=== PATIENT | male | born 1935 | race Caucasian/White ===

== ENCOUNTER 2021-10-30 12:46 | Observation (INO) ==
[2021-10-30] MEDS ORDERED: Isovue-370 500 ML BOTTLE IVP ONE (13:10)
[2021-10-30 13:28] LABS: Basophils % 0.4 %; Hemoglobin 13.9 g/dL (12.9-16.9)
[2021-10-30 13:30] LABS: Immature Granulocytes % 0.2 % (0-4); Immature Platelets 4.8 % (1.1-6.1); Lymphocytes # 0.7 K/mcL (0.6-4.6); Lymphocytes % 13.4 %; Mean Corpuscular HGB Conc 31.6 g/dL (31.6-35.5); Mean Corpuscular Hemoglobin 28.6 pg (28.0-33.3); Mean Corpuscular Volume 90.5 fL (83.0-100.0); Mean Platelet Volume 10.7 fL (9.4-12.4); Monocytes # 0.9 K/mcL (0.0-1.3); Monocytes % 15.6 %; Neutrophils # 3.9 K/mcL (1.6-8.9); Platelet Count 109 K/mcL (140-400); Red Blood Count 4.86 M/mcL (4.19-5.50); Red Cell Distribution Width 13.8 % (11.5-14.5); Segmented Neutrophils % 70.4 %; White Blood Count 5.5 K/mcL (4.3-11.1)
[2021-10-30 13:35] LABS: INR 1.1; Prothrombin Time 11.7 Seconds (9.4-12.1)
[2021-10-30 13:51] LABS: Albumin/Globulin Ratio 1.3 (1.1-2.2); Bilirubin,Direct 0.1 mg/dL (0.0-0.2); Bilirubin,Indirect 0.4 mg/dL (0.0-1.0); Bilirubin,Total 0.5 mg/dL (0.3-1.0); Potassium 4.8 mEq/L (3.5-5.1)
[2021-10-30 13:58] LABS: Troponin I 0.03 ng/mL (< 0.04)
[2021-10-30 14:18] LABS: Influenza A PCR Negative (Negative); Influenza B PCR Negative (Negative); Resp. Syncytial Virus PCR Negative (Negative)
[2021-10-30 14:59] LABS: SARS-CoV-2 by PCR (In House) Positive (Negative)
[2021-10-30] MEDS ORDERED: Naloxone 0.4 MG/ML INJ IVP PRN (15:51)
[2021-10-30] MEDS ORDERED: Mag Hydrox/Al Hydrox/Simeth 30 ML UDC PO PRN (15:51)
[2021-10-30] MEDS ORDERED: Ondansetron ODT 4 MG TAB.RAPDIS SL PRN (15:51)
[2021-10-30] MEDS ORDERED: 0.9 % Sodium Chloride 500 ML IVC ONE (15:55)
[2021-10-30] MEDS ORDERED: 0.9 % Sodium Chloride 1,000 ML IVC SCH (16:00)
[2021-10-30 17:29] LABS: Bacteria,Urine Few per hpf (None-Few); Bilirubin,Urine Negative (Negative); Blood,Urine Small (Negative); Clarity,Urine Clear (Clear); Color,Urine Light-Yellow (Yellow); Glucose,Urine (UA) Normal (Normal); Hyaline Casts,Urine Few per lpf (None Seen); Ketones,Urine Negative (Negative); Leukocyte Esterase,Urine Negative (Negative); Mucus,Urine Few per lpf (None-Few); Nitrite,Urine Negative (Negative); PH,Urine 5.5 pH Units (5.0-8.0); Protein,Urine 50 mg/dL (Neg-Trace); RBC,Urine 15-30 per hpf (0-3); Specific Gravity,Urine 1.019 (1.010-1.025); Urobilinogen,Urine Normal (Normal); WBC,Urine 0-3 per hpf (0-3)
[2021-10-31] MEDS ORDERED: *HR* Enoxaparin 30 MG/0.3 ML SYRINGE SQ SCH (07:00)
[2021-10-31] MEDS: Aspirin Enteric Coated 325 MG Tablet PO SCH (07:56)
[2021-10-31 09:19] LABS: Basophils % 0.6 %; Eosinophils % 0.3 %; Hemoglobin 12.5 g/dL (12.9-16.9); Immature Granulocytes % 0.6 % (0-4); Lymphocytes # 0.9 K/mcL (0.6-4.6); Lymphocytes % 23.7 %; Mean Corpuscular HGB Conc 32.1 g/dL (31.6-35.5); Mean Corpuscular Hemoglobin 29.3 pg (28.0-33.3); Mean Corpuscular Volume 91.3 fL (83.0-100.0); Mean Platelet Volume 10.5 fL (9.4-12.4); Monocytes # 0.6 K/mcL (0.0-1.3); Monocytes % 15.9 %; Neutrophils # 2.1 K/mcL (1.6-8.9); Red Blood Count 4.27 M/mcL (4.19-5.50); Red Cell Distribution Width 13.7 % (11.5-14.5); Segmented Neutrophils % 58.9 %; White Blood Count 3.6 K/mcL (4.3-11.1)
[2021-10-31 09:21] LABS: Platelet Count 85 K/mcL (140-400)
[2021-10-31 09:57] LABS: Albumin 3.4 g/dL (3.5-5.7); Albumin/Globulin Ratio 1.4 (1.1-2.2); Bilirubin,Total 0.5 mg/dL (0.3-1.0); Calcium 7.8 mg/dL (8.6-10.3); Globulin 2.4 g/dL (2.4-3.5); Potassium 3.9 mEq/L (3.5-5.1); Total Protein 5.8 g/dL (6.4-8.9)
[2021-10-31] MEDS ORDERED: 0.9 % Sodium Chloride 500 ML IVC SCH (12:30)
[2021-11-01 01:43] LABS: Basophils % 0.3 %; Red Cell Distribution Width 13.7 % (11.5-14.5); Segmented Neutrophils % 56.2 %
[2021-11-01 01:45] LABS: Eosinophils % 0.3 %; Hematocrit 38.8 % (37.5-50.1); Hemoglobin 12.3 g/dL (12.9-16.9); Immature Granulocytes % 0.8 % (0-4); Immature Platelets 4.5 % (1.1-6.1); Lymphocytes # 1.2 K/mcL (0.6-4.6); Lymphocytes % 29.9 %; Mean Corpuscular HGB Conc 31.7 g/dL (31.6-35.5); Mean Corpuscular Hemoglobin 28.9 pg (28.0-33.3); Mean Corpuscular Volume 91.1 fL (83.0-100.0); Mean Platelet Volume 10.6 fL (9.4-12.4); Monocytes # 0.5 K/mcL (0.0-1.3); Monocytes % 12.5 %; Neutrophils # 2.2 K/mcL (1.6-8.9); Red Blood Count 4.26 M/mcL (4.19-5.50); White Blood Count 3.9 K/mcL (4.3-11.1)
[2021-11-01 01:49] LABS: Platelet Count 87 K/mcL (140-400)
[2021-11-01 02:07] LABS: Magnesium 1.8 mg/dL (1.6-2.6); Phosphorous 2.9 mg/dL (2.7-4.5)
[2021-11-01] MEDS: *HR* Heparin 5,000 UNIT/ML VIAL SQ SCH (17:23)
[2021-11-02] MEDS ORDERED: Acetaminophen 325 MG TABLET PO ONE (03:38)
[2021-11-02] MEDS: *HR* Heparin 5,000 UNIT/ML VIAL SQ SCH ×2 (04:09→16:34)
[2021-11-02 07:05] LABS: Calcium 8.3 mg/dL (8.6-10.3); Magnesium 1.8 mg/dL (1.6-2.6); Phosphorous 2.5 mg/dL (2.7-4.5)
[2021-11-02] MEDS: Aspirin Enteric Coated 325 MG Tablet PO SCH (08:44)
[2021-11-03] MEDS: *HR* Heparin 5,000 UNIT/ML VIAL SQ SCH ×2 (05:17→16:49)
[2021-11-03] MEDS ORDERED: Acetaminophen 325 MG TABLET PO ONE (05:21)
[2021-11-03] MEDS: Aspirin Enteric Coated 325 MG Tablet PO SCH (08:21)
[2021-11-03] MEDS ORDERED: 0.9 % Sodium Chloride 1,000 ML IVC SCH (17:15)
[2021-11-04] MEDS ORDERED: Acetaminophen 325 MG TABLET PO ONE (03:56)
[2021-11-04] MEDS: *HR* Heparin 5,000 UNIT/ML VIAL SQ SCH ×2 (04:08→17:30)
[2021-11-04] MEDS: Aspirin Enteric Coated 325 MG Tablet PO SCH (09:16)
[2021-11-04 13:02] LABS: BUN/Creatinine Ratio 11 (6-26); Blood Urea Nitrogen 11 mg/dL (8-23); Calcium 9.1 mg/dL (8.6-10.3); Carbon Dioxide 26 mEq/L (23-29); Chloride 101 mEq/L (98-107); Glucose 99 mg/dL (70-105); Osmolality,Calculated 277 (280-300); Potassium 3.9 mEq/L (3.5-5.1); Sodium 134 mEq/L (136-145); eGFR For African Americans > 60 (> 60); eGFR For Non-African Americans > 60 (> 60)
[2021-11-04] MEDS: Melatonin 3 MG TABLET PO PRN (21:42)
[2021-11-05] MEDS: *HR* Heparin 5,000 UNIT/ML VIAL SQ SCH ×2 (05:30→16:43)
[2021-11-05] MEDS: Aspirin Enteric Coated 325 MG Tablet PO SCH (08:18)
[2021-11-05] MEDS ORDERED: Menthol 1 EACH LOZENGE PO PRN (13:15)
[2021-11-05] MEDS: Melatonin 3 MG TABLET PO PRN (20:54)
[2021-11-06 02:26] LABS: Basophils % 0.4 %; Eosinophils # 0.1 K/mcL (0.0-0.6); Eosinophils % 2.5 %; Hematocrit 35.4 % (37.5-50.1); Hemoglobin 11.6 g/dL (12.9-16.9); Immature Granulocytes % 0.4 % (0-4); Lymphocytes % 19.7 %; Mean Corpuscular HGB Conc 32.8 g/dL (31.6-35.5); Mean Corpuscular Hemoglobin 28.5 pg (28.0-33.3); Mean Platelet Volume 10.6 fL (9.4-12.4); Monocytes # 0.5 K/mcL (0.0-1.3); Monocytes % 11.1 %; Platelet Count 169 K/mcL (140-400); Red Blood Count 4.07 M/mcL (4.19-5.50); Red Cell Distribution Width 13.2 % (11.5-14.5); Segmented Neutrophils % 65.9 %; White Blood Count 4.8 K/mcL (4.3-11.1)
[2021-11-06 02:33] LABS: Neutrophils # 3.2 K/mcL (1.6-8.9)
[2021-11-06 02:50] LABS: Albumin 3.1 g/dL (3.5-5.7); Albumin/Globulin Ratio 1.1 (1.1-2.2); Bilirubin,Total 0.7 mg/dL (0.3-1.0); Calcium 8.2 mg/dL (8.6-10.3); Globulin 2.7 g/dL (2.4-3.5); Total Protein 5.8 g/dL (6.4-8.9)
[2021-11-06 03:05] LABS: Platelet Estimate Normal (Normal); Reactive Lymphocytes Present (Not Present)
[2021-11-06] MEDS: *HR* Heparin 5,000 UNIT/ML VIAL SQ SCH ×2 (04:58→18:18)
[2021-11-06] MEDS: Aspirin Enteric Coated 325 MG Tablet PO SCH (09:40)
[2021-11-07] MEDS: *HR* Heparin 5,000 UNIT/ML VIAL SQ SCH (06:16)
[2021-11-07 07:53] VITALS: BP 102/57; PULSE 93; TEMP 98.1; O2SAT 97
[2021-11-07 08:00] LABS: Calcium 8.8 mg/dL (8.6-10.3); Potassium 4.4 mEq/L (3.5-5.1)
[2021-11-07] MEDS: Aspirin Enteric Coated 325 MG Tablet PO SCH (08:48)
== END 2021-11-07 16:36 | disposition other institution (70) ==
LOC: EMEROOARM 12:46 → 3BNU 12:46 → SUATTDRO 16:59 → 3BNU 18:25
PROVIDERS: ADMIT Internal Medicine; ATTEND Registered Nurse